=== PATIENT | male | born 1950 | race Caucasian/White ===

== ENCOUNTER → 2022-07-13 14:03 | Outpatient (CLI) | payer MEDICARE, OTHER, SELFPAY ==
--- NOTE | 2022-07-13 | DI.RAD.S_ITS ---
PROCEDURE: XR CHEST 2V INDICATIONS: Abnormal weight loss TECHNIQUE: 2 views of the chest were acquired. COMPARISON: None. FINDINGS: Surgical changes and devices: Cervical thoracic spine fixation hardware. Lungs and pleura: Lungs are clear. No pleural effusions or pneumothorax. Bilateral lung emphysematous changes. Mediastinum: Mediastinal contours are normal. Heart size is normal. Bones and chest wall: No suspicious bony abnormalities. Soft tissues appear unremarkable. IMPRESSION: No acute cardiopulmonary disease process. Dictated by: Capri Morgan MD, PhD on 07/13/2022 at 15:12 Approved by: Capri Morgan MD, PhD on 07/13/2022 at 15:12
== END ==
PROVIDERS: PCP Family Medicine; Referring Provider Family Medicine; Visit Provider Family Medicine
DX: R63.4 Abnormal weight loss (principal)
CPT/HCPCS: 71046